=== PATIENT | female | born 1965 | race Asian ===

== ENCOUNTER 2023-07-24 09:17 | Outpatient (CLI) | payer OTHER, SELFPAY | END 2023-07-24 09:18 | disposition home or self-care (01) | PROVIDERS: PCP Family Medicine; Visit Provider Family Medicine | DX: Z00.00 Encounter for general adult medical examination without abnormal findings (principal); Z13.6 Encounter for screening for cardiovascular disorders; Z13.1 Encounter for screening for diabetes mellitus | CPT/HCPCS: 80061; 82947 ==

== ENCOUNTER 2023-08-07 10:50 | Outpatient (CLI) | payer OTHER, SELFPAY | END 2023-08-07 10:51 | disposition home or self-care (01) | LOC: OP CLINIC 10:51 | PROVIDERS: PCP Family Medicine; Visit Provider Surgery | DX: Z12.11 Encounter for screening for malignant neoplasm of colon (principal); K63.5 Polyp of colon; K64.8 Other hemorrhoids | CPT/HCPCS: 45385; 88305; J2250; J3010 ==